=== PATIENT | male | born 1950 | race American Indian/Alaskan Native ===

== ENCOUNTER 2022-03-25 07:13 | Emergency (ER) | payer MEDICARE, OTHER ==
[2022-03-25] MEDS ORDERED: GI Cocktail Oral Solution 30 ML PO ONE (09:15)
[2022-03-25] MEDS ORDERED: Pantoprazole 40 MG in Sodium Chloride 0.9% 10 ML IV ONE (09:15)
[2022-04-19 14:02] LABS: ANION GAP 9.2 mEq/L (7-13); CHLORIDE,CL 101 mmol/L (98-107); ESTIMATED GFR 43 mL/min (>=60); SODIUM,NA 137 mmol/L (136-145)
[2022-04-19 14:04] LABS: PTT,PARTIAL THROMBOPLSTIN TIME 23.9 SEC (22.0-34.0)
== END 2022-03-25 10:20 | disposition home or self-care (01) ==
LOC: DL.ED 07:13
DX: R10.13 Epigastric pain (principal); E11.51 Type 2 diabetes mellitus with diabetic peripheral angiopathy without gangrene
CPT/HCPCS: 36415; 71045; 80053; 81001; 82150; 83605; 83690; 83735; 83880; 84484; 85025; 85610; 85730; 96374; 99284-25

== ENCOUNTER 2022-03-27 09:10 | Emergency (ER) | payer MEDICARE, OTHER ==
[2022-04-20 11:03] LABS: ANION GAP 9.7 mEq/L (7-13); CHLORIDE,CL 95 mmol/L (98-107); ESTIMATED GFR 25 mL/min (>=60); SODIUM,NA 128 mmol/L (136-145)
[2022-04-20 11:07] LABS: CORONAVIRUS COVID-19 NAA NEGATIVE (NEGATIVE); RESPIRATORY SYNCYTIAL VIR NAA NEGATIVE (NEGATIVE)
== END 2022-03-28 00:05 | disposition home or self-care (01) ==
LOC: DL.ED 09:10
DX: E86.0 Dehydration (principal); I95.1 Orthostatic hypotension; I12.9 Hypertensive chronic kidney disease with stage 1 through stage 4 chronic kidney disease, or unspecified chronic kidney disease; N18.9 Chronic kidney disease, unspecified
CPT/HCPCS: 0241U; 36415; 80053; 81003; 84484; 85025; 85610; 96360; 99284; 93005

== ENCOUNTER 2022-03-28 17:45 | Inpatient (IN) | payer MEDICARE, OTHER ==
[2022-03-29] MEDS ORDERED: Mirtazapine 15 MG Tab PO ONE (01:45)
[2022-03-29] MEDS ORDERED: Acetaminophen 500 MG Tab PO ONE (01:45)
[2022-03-29] MEDS ORDERED: Insulin Lispro 100 Units/ML 3 ML Vial SUBCUT ONE (02:00)
[2022-03-29] MEDS ORDERED: Heparin Sodium 5,000 Units/ML Vial IV ONE (02:00)
[2022-03-29] MEDS ORDERED: Sodium Chloride 0.9% 250 ML IV ONE (06:00)
[2022-03-29] MEDS ORDERED: Pantoprazole 40 MG Tab.CR PO ONE (06:00)
[2022-03-29] MEDS ORDERED: cefTRIAXone 2 GM Vial IV ONE (08:10)
[2022-03-29] MEDS ORDERED: metroNIDAZOLE/Normal Saline 100 ML IV ONE (09:30)
[2022-04-22 10:33] LABS: CHLORIDE,CL 95 mmol/L (98-107); SODIUM,NA 127 mmol/L (136-145)
[2022-04-22 10:34] LABS: ANION GAP 10.1 mEq/L (7-13); ESTIMATED GFR 23 mL/min (>=60)
[2022-04-22 14:53] LABS: ANION GAP 13.6 mEq/L (7-13); CHLORIDE,CL 97 mmol/L (98-107); ESTIMATED GFR 22 mL/min (>=60); SODIUM,NA 130 mmol/L (136-145)
== END 2022-03-29 12:20 | DRG 682 ==
LOC: DL.ED 17:45 → DL.ZCENSUS 22:25
PROVIDERS: ADMIT Internal Medicine; ATTEND Internal Medicine
DX: N17.9 Acute kidney failure, unspecified (principal); K75.0 Abscess of liver; R41.82 Altered mental status, unspecified; R78.81 Bacteremia; E87.1 Hypo-osmolality and hyponatremia; I95.1 Orthostatic hypotension; B96.89 Other specified bacterial agents as the cause of diseases classified elsewhere; N18.9 Chronic kidney disease, unspecified; E11.22 Type 2 diabetes mellitus with diabetic chronic kidney disease; K80.20 Calculus of gallbladder without cholecystitis without obstruction; H54.40 Blindness, one eye, unspecified eye; I12.9 Hypertensive chronic kidney disease with stage 1 through stage 4 chronic kidney disease, or unspecified chronic kidney disease; I25.10 Atherosclerotic heart disease of native coronary artery without angina pectoris; E86.0 Dehydration; Z95.0 Presence of cardiac pacemaker; Z79.84 Long term (current) use of oral hypoglycemic drugs; Z79.899 Other long term (current) drug therapy; I95.9 Hypotension, unspecified; I10 Essential (primary) hypertension; E11.40 Type 2 diabetes mellitus with diabetic neuropathy, unspecified; Z95.1 Presence of aortocoronary bypass graft
CPT/HCPCS: 36415; 70450; 74177; 76705; 80053; 82140; 82947; 83605; 83735; 84145; 84484; 85025; 85610; 86140; 87040; 87077; 87186; 99285; A9270-GY; J0696; J1644; J1815-GY; J3490; J7050

== ENCOUNTER 2022-05-05 09:22 | Emergency (ER) | payer MEDICARE, OTHER ==
[2022-05-05 09:53] VITALS: BP 142/91; PULSE 106
[2022-05-05 10:59] LABS: ANION GAP 12.2 mEq/L (7-13)
[2022-05-05] MEDS ORDERED: Aspirin 81 MG Tab.Chew PO ONE (11:05)
[2022-05-05] MEDS ORDERED: Heparin Sodium 5,000 Units/ML Vial IVPUSH ONE (11:07)
[2022-05-05] MEDS ORDERED: Heparin Sodium/0.45% NaCl 25,000 UNITS/500 ML BAG IV ONE (11:08)
== END 2022-05-05 12:43 ==
LOC: DL.ED 09:22
DX: I21.4 Non-ST elevation (NSTEMI) myocardial infarction (principal); R77.8 Other specified abnormalities of plasma proteins; I25.10 Atherosclerotic heart disease of native coronary artery without angina pectoris; E78.00 Pure hypercholesterolemia, unspecified; I10 Essential (primary) hypertension; E10.9 Type 1 diabetes mellitus without complications; Z95.0 Presence of cardiac pacemaker; Z79.82 Long term (current) use of aspirin; Z79.899 Other long term (current) drug therapy
CPT/HCPCS: 71045; 80053; 83605; 84484; 85025; 85610; 93005; 96365; 99285; A9270; J1644

== ENCOUNTER 2022-10-07 12:00 | Emergency (ER) | payer MEDICARE, OTHER ==
[2022-10-07 12:39] VITALS: BP 156/77; PULSE 73
[2022-10-07] MEDS ORDERED: Sodium Chloride 0.9% 10 ML Syringe FLUSH PRN (12:46)
[2022-10-07] MEDS ORDERED: Acetaminophen 500 MG Tab PO ONE (13:01)
[2022-10-07] MEDS ORDERED: Sodium Chloride 0.9% 1,000 ML IV ONE (13:27)
[2022-10-07 13:32] LABS: ANION GAP 11.9 mEq/L (7-13)
[2022-10-07] MEDS ORDERED: cefTRIAXone 2 GM Vial IVPUSH ONE (13:45)
[2022-10-07 13:50] LABS: CORONAVIRUS COVID-19 NAA NEGATIVE (NEGATIVE); RESPIRATORY SYNCYTIAL VIR NAA NEGATIVE (NEGATIVE)
== END 2022-10-07 14:17 | disposition home or self-care (01) ==
LOC: DL.ED 12:00
DX: J18.9 Pneumonia, unspecified organism (principal); E11.9 Type 2 diabetes mellitus without complications; I10 Essential (primary) hypertension; E78.5 Hyperlipidemia, unspecified; I25.10 Atherosclerotic heart disease of native coronary artery without angina pectoris; E78.00 Pure hypercholesterolemia, unspecified; Z95.0 Presence of cardiac pacemaker; Z79.899 Other long term (current) drug therapy; Z79.82 Long term (current) use of aspirin; Z20.822 Contact with and (suspected) exposure to COVID-19
CPT/HCPCS: 0241U; 36415; 71045; 80053; 81001; 82947; 83605; 85025; 86140; 87040; 87077; 96361; 96374; 99284; A9270; J0696; J7030

== ENCOUNTER 2022-10-08 18:39 | Inpatient (IN) | payer MEDICARE, OTHER ==
[2022-10-08] MEDS ORDERED: Acetaminophen/HYDROcodone 325-5 MG Tab PO PRN (20:07)
[2022-10-08] MEDS ORDERED: Polyethylene Glycol 3350 Powder 17 GM Packet PO PRN (20:07)
[2022-10-08] MEDS ORDERED: Magnesium Hydroxide 400 MG/5 ML Susp 30 ML Cup PO PRN (20:07)
[2022-10-08] MEDS ORDERED: HYDROmorphone 0.5 MG/0.5 ML Syringe IVPUSH PRN (20:07)
[2022-10-08] MEDS ORDERED: Acetaminophen 325 MG Tab PO PRN (20:07)
[2022-10-08] MEDS ORDERED: Ondansetron 4 MG/2 ML SDV IVPUSH PRN (20:07)
[2022-10-08] MEDS ORDERED: Albuterol/Ipratropium 3.0-0.5 MG/3 ML Neb Soln NEB PRN (20:07)
[2022-10-08] MEDS ORDERED: Bisacodyl 5 MG Tab PO PRN (20:07)
[2022-10-08] MEDS ORDERED: 50% Dextrose in Water 50 ML Syringe IVPUSH PRN (20:10)
[2022-10-08] MEDS ORDERED: Glucagon,Human Recombinant 1 MG Vial IM PRN (20:10)
[2022-10-08 20:52] LABS: ANION GAP 12.9 mEq/L (7-13)
[2022-10-08] MEDS ORDERED: Melatonin 3 MG Tab PO PRN (20:52)
[2022-10-08] MEDS ORDERED: guaiFENesin 600 MG Tab.ER PO ONE (21:06)
[2022-10-08] MEDS ORDERED: Metoprolol Tartrate 5 MG/5 ML SDV IVPUSH PRN (21:35)
[2022-10-08] MEDS ORDERED: Sodium Chloride 0.9% 10 ML Syringe FLUSH PRN (21:40)
[2022-10-08] MEDS ORDERED: Sodium Chloride 0.9% 1,000 ML IV SCH (21:45)
[2022-10-08] MEDS ORDERED: Apixaban 5 MG Tab PO ONE (21:45)
[2022-10-08] MEDS: VANCOmycin 1.75 GM/350 ML 1.75 GM in Premix Bag 1 BAG IV ONE ×2 (21:57→22:03)
[2022-10-08] MEDS: Gabapentin 400 MG Cap PO SCH (22:05)
[2022-10-08] MEDS: Piperacillin/Tazobactam 2.25 GM in Sodium Chloride 0.9% 50 ML IV SCH (23:49)
[2022-10-09] MEDS ORDERED: Piperacillin/Tazobactam 3.375 GM in Sodium Chloride 0.9% 100 ML IV SCH ×2
[2022-10-09] MEDS: Piperacillin/Tazobactam 2.25 GM in Sodium Chloride 0.9% 50 ML IV SCH ×4 (05:42→23:02)
[2022-10-09 07:46] LABS: ANION GAP 10.8 mEq/L (7-13)
[2022-10-09] MEDS: Apixaban 5 MG Tab PO SCH ×2 (08:10→21:28)
[2022-10-09] MEDS: guaiFENesin 600 MG Tab.ER PO SCH ×2 (08:10→21:29)
[2022-10-09] MEDS: Sodium Chloride 0.9% 10 ML Syringe FLUSH SCH ×2 (08:11→21:29)
[2022-10-09] MEDS: Saccharomyces Boulardii (Probiotic) 250 MG Cap PO SCH ×2 (08:11→21:28)
[2022-10-09] MEDS: Insulin Lispro 100 Units/ML 3 ML Vial SUBCUT SCH ×3 (08:11→17:03)
[2022-10-09] MEDS: Gabapentin 400 MG Cap PO SCH (21:29)
[2022-10-09] MEDS: hydrALAZINE 20 MG/ML SDV IVPUSH PRN (23:09)
[2022-10-09] MEDS: Calcium Carbonate 500 MG Tab.Chew PO PRN (23:27)
[2022-10-10] MEDS: Piperacillin/Tazobactam 2.25 GM in Sodium Chloride 0.9% 50 ML IV SCH ×3 (05:23→17:33)
[2022-10-10 05:56] LABS: ANION GAP 13.6 mEq/L (7-13)
[2022-10-10] MEDS: hydrALAZINE 20 MG/ML SDV IVPUSH PRN ×2 (07:42→16:35)
[2022-10-10] MEDS: Saccharomyces Boulardii (Probiotic) 250 MG Cap PO SCH ×2 (08:11→20:15)
[2022-10-10] MEDS: Apixaban 5 MG Tab PO SCH ×2 (08:11→20:17)
[2022-10-10] MEDS: Insulin Lispro 100 Units/ML 3 ML Vial SUBCUT SCH ×3 (08:12→16:31)
[2022-10-10] MEDS: guaiFENesin 600 MG Tab.ER PO SCH ×2 (08:12→20:16)
[2022-10-10] MEDS: Sodium Chloride 0.9% 10 ML Syringe FLUSH SCH ×2 (08:18→20:19)
[2022-10-10] MEDS ORDERED: cloNIDine 0.1 MG Tab PO ONE (17:57)
[2022-10-10] MEDS: Furosemide 20 MG Tab PO SCH (18:14)
[2022-10-10] MEDS: hydrALAZINE 25 MG Tab PO SCH ×2 (18:17→20:22)
[2022-10-10] MEDS: Dorzolamide 2% Ophth Soln 10 ML Bottle EYEBOTH SCH (20:14)
[2022-10-10] MEDS: Carvedilol 25 MG Tab PO SCH (20:18)
[2022-10-10] MEDS: Calcium Carbonate 500 MG Tab.Chew PO PRN (20:42)
[2022-10-10] MEDS ORDERED: Isosorbide Mononitrate 60 MG Tab.ER PO SCH (21:00)
[2022-10-10] MEDS ORDERED: Gabapentin 300 MG Cap PO SCH (21:00)
[2022-10-11] MEDS: Piperacillin/Tazobactam 2.25 GM in Sodium Chloride 0.9% 50 ML IV SCH ×3 (00:30→13:10)
[2022-10-11 06:02] LABS: ANION GAP 14.1 mEq/L (7-13)
[2022-10-11] MEDS: Carvedilol 25 MG Tab PO SCH (08:19)
[2022-10-11] MEDS: Saccharomyces Boulardii (Probiotic) 250 MG Cap PO SCH (08:19)
[2022-10-11] MEDS: Apixaban 5 MG Tab PO SCH (08:20)
[2022-10-11] MEDS: hydrALAZINE 25 MG Tab PO SCH (08:20)
[2022-10-11 08:21] VITALS: BP 159/77; PULSE 76
[2022-10-11] MEDS: guaiFENesin 600 MG Tab.ER PO SCH (08:21)
[2022-10-11] MEDS: Furosemide 20 MG Tab PO SCH (08:21)
[2022-10-11] MEDS: Insulin Lispro 100 Units/ML 3 ML Vial SUBCUT SCH (08:23)
[2022-10-11] MEDS: Sodium Chloride 0.9% 10 ML Syringe FLUSH SCH (08:24)
[2022-10-11] MEDS: Dorzolamide 2% Ophth Soln 10 ML Bottle EYEBOTH SCH (08:25)
[2022-10-11] MEDS ORDERED: Clopidogrel 75 MG Tab PO SCH (09:00)
[2022-10-11] MEDS ORDERED: Magnesium Oxide 400 MG Tab PO SCH (09:00)
[2022-10-11] MEDS ORDERED: DULoxetine 30 MG Cap PO SCH (09:00)
[2022-10-11] MEDS ORDERED: Cyanocobalamin (Vitamin B12) 100 MCG Tab PO SCH (09:00)
[2022-10-11] MEDS ORDERED: Ferrous Sulfate 325 MG Tab PO SCH (09:00)
[2022-10-11] MEDS ORDERED: Potassium Chloride 10 MEQ Tab.ER PO SCH (09:00)
[2022-10-11] MEDS ORDERED: Multivitamin Tab PO SCH (09:00)
[2022-10-11] MEDS ORDERED: atorvaSTATin 20 MG Tab PO SCH (09:00)
[2022-10-11] MEDS ORDERED: FENOFIBRIC ACID 45 MG PO SCH (09:00)
== END 2022-10-11 10:00 | disposition home or self-care (01) | DRG 194 ==
LOC: DL.MS 18:39 → UNDOADMIN 18:39 → DL.MS 20:07
PROVIDERS: ADMIT Internal Medicine; ATTEND Internal Medicine
DX: J18.9 Pneumonia, unspecified organism (principal); R78.81 Bacteremia; D63.8 Anemia in other chronic diseases classified elsewhere; E11.65 Type 2 diabetes mellitus with hyperglycemia; F32.A Depression, unspecified; E66.9 Obesity, unspecified; Z68.27 Body mass index [BMI] 27.0-27.9, adult; I49.5 Sick sinus syndrome; N18.30 Chronic kidney disease, stage 3 unspecified; E11.22 Type 2 diabetes mellitus with diabetic chronic kidney disease; M19.90 Unspecified osteoarthritis, unspecified site; I48.0 Paroxysmal atrial fibrillation; E11.42 Type 2 diabetes mellitus with diabetic polyneuropathy; H40.9 Unspecified glaucoma; G89.29 Other chronic pain; M54.9 Dorsalgia, unspecified; D63.1 Anemia in chronic kidney disease; I12.9 Hypertensive chronic kidney disease with stage 1 through stage 4 chronic kidney disease, or unspecified chronic kidney disease; E78.5 Hyperlipidemia, unspecified; I25.10 Atherosclerotic heart disease of native coronary artery without angina pectoris; Z95.1 Presence of aortocoronary bypass graft; Z95.0 Presence of cardiac pacemaker; Z79.82 Long term (current) use of aspirin; Z79.899 Other long term (current) drug therapy; Z79.01 Long term (current) use of anticoagulants; Z98.49 Cataract extraction status, unspecified eye
CPT/HCPCS: 36415; 80053; 80202; 82947; 83605; 83735; 85025; 86140; 87040; 94010; 99222; 99232; 99238; A9270-GY; J0360; J1815-GY; J2543; J3370; J3490; J7030; J7040

== ENCOUNTER 2023-01-24 02:17 | Emergency (ER) | payer MEDICARE, OTHER ==
[2023-01-24 02:45] VITALS: BP 166/96; PULSE 70
[2023-01-24 02:55] LABS: BASOPHILS PERCENT AUTO 0.1 % (0.0-1.0); HEMATOCRIT 33.6 % (40.0-54.0); LYMPHOCYTES PERCENT AUTO 3.2 % (20.5-50.1); MEAN CORPUSCULAR HEMOGLOBIN 29.7 pg (27.0-34.0); MEAN CORPUSCULAR HGB CONC 32.7 g/dL (33.0-35.0); MEAN CORPUSCULAR VOLUME 90.8 fL (80-100); MONOCYTES PERCENT AUTO 4.3 % (2-8); NEUTROPHILS PERCENT AUTO 92.4 % (42.2-75.2); PLATELET COUNT,PLT 193 10^3/uL (150-450); WHITE BLOOD CELL COUNT,WBC 19.2 10^3/uL (5.0-10.0)
[2023-01-24 03:03] LABS: INR 1.3 (0.9-1.2); PROTHROMBIN TIME 13.1 SEC (9.0-12.0); PTT,PARTIAL THROMBOPLSTIN TIME 31.3 SEC (22.0-34.0)
[2023-01-24 03:08] LABS: O2 DELIVERY DEVICE ROOM AIR
[2023-01-24 03:09] LABS: BASE EXCESS ARTERIAL 1 mmol/L ((-2)-(+3)); BICARBONATE,ARTERIAL 24.5 mmol/L (22-26); O2 SATURATION ARTERIAL 89 % (95-100); PCO2 ARTERIAL 38 mmHg (35-45); PH,ARTERIAL 7.43 (7.35-7.45); PO2 ARTERIAL 60 mmHg (70-100)
[2023-01-24 03:10] LABS: ALLEN TEST positive
[2023-01-24 03:14] LABS: ALANINE AMINOTRANSFERASE,ALT 19 U/L (16-63); ALBUMIN 3.3 g/dL (3.4-5.0); ALKALINE PHOSPHATASE 80 U/L (46-116); ANION GAP 12.6 mEq/L (7-13); ASPARTATE AMNIOTRANSFERASE,AST 32 U/L (15-37); BILIRUBIN TOTAL 1.1 mg/dL (0.2-1.0); BLOOD UREA NITROGEN,BUN 44 mg/dL (7-18); BUN/CREATININE RATIO 14.6 (No establ ref range); CALCIUM 9.1 mg/dL (8.5-10.1); CARBON DIOXIDE,CO2 28 mmol/L (21-32); CHLORIDE,CL 95 mmol/L (98-107); CREATININE 3.01 mg/dL (0.70-1.30); EST CRCL DRUG DOSING (CG) 25.41 mL/min; GLUCOSE RANDOM 179 mg/dL (70-99); MAGNESIUM 2.1 mg/dL (1.8-2.4); POTASSIUM,K 4.6 mmol/L (3.5-5.1); PROTEIN TOTAL,TP 7.9 g/dL (6.4-8.2); SODIUM,NA 131 mmol/L (136-145); TSH ULTRASENSITIVE 1.27 uIU/mL (0.36-3.74)
[2023-01-24 03:15] LABS: A/G RATIO 0.72; C-REACTIVE PROTEIN 13.8 mg/dL (0.0-0.9); ESTIMATED GFR 21 mL/min (>=60); ETHANOL BLOOD MEDICAL < 3 mg/dL (0)
[2023-01-24 03:16] LABS: LACTIC ACID 2.2 mmol/L (0.4-2.0)
[2023-01-24 03:18] LABS: B-TYPE NATRIURETIC PEPTIDE,BNP 1410 pg/ml (0-100)
[2023-01-24] MEDS ORDERED: Sodium Chloride 0.9% 1,000 ML IV ONE (03:41)
[2023-01-24] MEDS ORDERED: Acetaminophen 500 MG Tab PO ONE (04:15)
[2023-01-24 04:24] LABS: APPEARANCE,URINE SLIGHTLY CLOUDY (CLEAR); BILIRUBIN,URINE NEGATIVE (NEGATIVE); COLOR,URINE YELLOW (YELLOW); GLUCOSE,URINE NEGATIVE (NEGATIVE); KETONES,URINE NEGATIVE (NEGATIVE); LEUKOCYTE ESTERASE,URINE NEGATIVE (NEGATIVE); NITRITE,URINE POSITIVE (NEGATIVE); OCCULT BLOOD,URINE TRACE-INTACT (NEGATIVE); PROTEIN,URINE >=300 (NEGATIVE); UROBILINOGEN,URINE 0.2 mg/dL (0.2-1.0)
[2023-01-24 04:27] LABS: AMPHETAMINES,URINE NEGATIVE (NEGATIVE); BARBITURATES,URINE NEGATIVE (NEGATIVE); BENZODIAZEPINE,URINE NEGATIVE (NEGATIVE); MDMA (ECSTASY), URINE NEGATIVE (NEGATIVE); METHADONE,URINE NEGATIVE (NEGATIVE); METHAMPHETAMINES,URINE NEGATIVE (NEGATIVE); OPIATES,URINE NEGATIVE (NEGATIVE); OXYCODONE,URINE NEGATIVE (NEGATIVE); PHENCYCLIDINE,URINE NEGATIVE (NEGATIVE); TCA,URINE NEGATIVE (NEGATIVE)
[2023-01-24 04:34] LABS: RBC,URINE 0-5 /HPF (0-5)
[2023-01-24 04:35] LABS: BACTERIA,URINE MANY /HPF (0-FEW/HPF); EPITHELIAL CELLS,URINE FEW /HPF (NOT SEEN)
[2023-01-24] MEDS ORDERED: cefTRIAXone 2 GM Vial IVPUSH ONE (04:38)
[2023-01-24] MEDS ORDERED: Nafcillin 2 GM Vial IVPUSH ONE (05:08)
== END 2023-01-24 06:38 ==
LOC: DL.ED 02:17
DX: A41.9 Sepsis, unspecified organism (principal); L03.116 Cellulitis of left lower limb; L03.115 Cellulitis of right lower limb; R41.0 Disorientation, unspecified; N30.00 Acute cystitis without hematuria; I13.0 Hypertensive heart and chronic kidney disease with heart failure and stage 1 through stage 4 chronic kidney disease, or unspecified chronic kidney disease; E13.22 Other specified diabetes mellitus with diabetic chronic kidney disease; N18.9 Chronic kidney disease, unspecified; I50.9 Heart failure, unspecified; N17.9 Acute kidney failure, unspecified; E78.00 Pure hypercholesterolemia, unspecified; I25.10 Atherosclerotic heart disease of native coronary artery without angina pectoris; M19.90 Unspecified osteoarthritis, unspecified site; Z79.899 Other long term (current) drug therapy; Z79.82 Long term (current) use of aspirin; Z79.01 Long term (current) use of anticoagulants; Z79.84 Long term (current) use of oral hypoglycemic drugs; Z95.0 Presence of cardiac pacemaker; W18.30XA Fall on same level, unspecified, initial encounter
CPT/HCPCS: 36415; 36600; 70450; 71045; 80053; 80305; 80307; 81001; 82140; 82803; 83605; 83735; 83880; 84443; 84484; 85025; 85610; 85730; 86140; 87040; 87077; 87086; 87088; 87186; 93005; 93010; 96361; 96374; 96375; 99285; A9270; C1758; J0696; J7030; J3490

== ENCOUNTER 2023-03-08 20:15 | Inpatient (IN) | payer MEDICARE, OTHER ==
[2023-03-08] MEDS ORDERED: Acetaminophen 325 MG Tab PO ONE (20:45)
[2023-03-08] MEDS ORDERED: Lactated Ringers 1,000 ML IV SCH (20:45)
[2023-03-08] MEDS: Sodium Chloride 0.9% 10 ML Syringe FLUSH PRN (20:57)
[2023-03-08 20:58] LABS: BASOPHILS PERCENT AUTO 0.1 % (0.0-1.0); HEMATOCRIT 30.4 % (40.0-54.0); HEMOGLOBIN 9.6 g/dL (14.0-18.0); LYMPHOCYTES PERCENT AUTO 2.7 % (20.5-50.1); MEAN CORPUSCULAR HEMOGLOBIN 29.4 pg (27.0-34.0); MEAN CORPUSCULAR HGB CONC 31.6 g/dL (33.0-35.0); MEAN CORPUSCULAR VOLUME 93.3 fL (80-100); MONOCYTES PERCENT AUTO 3.8 % (2-8); NEUTROPHILS PERCENT AUTO 93.4 % (42.2-75.2); PLATELET COUNT,PLT 229 10^3/uL (150-450); RED BLOOD CELL COUNT 3.26 10^6/uL (4.6-6.2); WHITE BLOOD CELL COUNT,WBC 19.8 10^3/uL (5.0-10.0)
[2023-03-08 21:07] LABS: ALBUMIN 2.9 g/dL (3.4-5.0); BILIRUBIN TOTAL 0.8 mg/dL (0.2-1.0); CALCIUM 8.9 mg/dL (8.5-10.1); CREATININE 3.13 mg/dL (0.70-1.30); EST CRCL DRUG DOSING (CG) 23.07 mL/min; MAGNESIUM 2.1 mg/dL (1.8-2.4); PROTEIN TOTAL,TP 7.3 g/dL (6.4-8.2)
[2023-03-08] MEDS ORDERED: cefTRIAXone 1 GM Vial IVPUSH ONE (21:09)
[2023-03-08] MEDS ORDERED: Vancomycin 2 GM in Sodium Chloride 0.9% 500 ML IV ONE (21:15)
[2023-03-08 21:16] LABS: A/G RATIO 0.66
[2023-03-08 21:17] LABS: LACTIC ACID 2.6 mmol/L (0.4-2.0)
[2023-03-08 21:20] LABS: APPEARANCE,URINE CLEAR (CLEAR); BILIRUBIN,URINE NEGATIVE (NEGATIVE); COLOR,URINE YELLOW (YELLOW); GLUCOSE,URINE NEGATIVE (NEGATIVE); KETONES,URINE NEGATIVE (NEGATIVE); LEUKOCYTE ESTERASE,URINE TRACE (NEGATIVE); NITRITE,URINE NEGATIVE (NEGATIVE); OCCULT BLOOD,URINE NEGATIVE (NEGATIVE); PH,URINE 5.5 (5.0-9.0); PROTEIN,URINE 100 (NEGATIVE); UROBILINOGEN,URINE 0.2 mg/dL (0.2-1.0)
[2023-03-08 21:29] LABS: BACTERIA,URINE FEW /HPF (0-FEW/HPF); EPITHELIAL CELLS,URINE MODERATE /HPF (NOT SEEN); HYALINE CASTS,URINE FEW; MUCUS,URINE FEW /LPF (NOT SEEN); RBC,URINE 0-5 /HPF (0-5)
[2023-03-08] MEDS ORDERED: Lactated Ringers 1,000 ML IV ONE (23:11)
[2023-03-08] MEDS ORDERED: hydrALAZINE 20 MG/ML SDV IVPUSH PRN (23:13)
[2023-03-08] MEDS ORDERED: Metoprolol Tartrate 5 MG/5 ML SDV IVPUSH PRN (23:13)
[2023-03-08] MEDS ORDERED: 50% Dextrose in Water 50 ML Syringe IVPUSH PRN (23:15)
[2023-03-08] MEDS ORDERED: Glucagon,Human Recombinant 1 MG Vial IM PRN (23:15)
[2023-03-08] MEDS ORDERED: Ondansetron 4 MG/2 ML SDV IVPUSH PRN (23:16)
[2023-03-08] MEDS ORDERED: Polyethylene Glycol 3350 Powder 17 GM Packet PO PRN (23:16)
[2023-03-08] MEDS ORDERED: Acetaminophen 325 MG Tab PO PRN (23:16)
[2023-03-08] MEDS ORDERED: HYDROmorphone 0.5 MG/0.5 ML Syringe IVPUSH PRN (23:16)
[2023-03-08] MEDS ORDERED: Magnesium Hydroxide 400 MG/5 ML Susp 30 ML Cup PO PRN (23:16)
[2023-03-08] MEDS ORDERED: Acetaminophen/HYDROcodone 325-5 MG Tab PO PRN (23:16)
[2023-03-08] MEDS ORDERED: Sennosides/Docusate Sodium 50-8.6 MG Tab PO PRN (23:16)
[2023-03-08] MEDS ORDERED: Naloxone 2 MG/2 ML Syringe IVPUSH PRN (23:16)
[2023-03-08] MEDS ORDERED: guaiFENesin/Dextromethorphan 100-10 MG/5 ML Soln 5 ML Cup PO PRN (23:29)
[2023-03-08 23:59] LABS: C-REACTIVE PROTEIN 10.24 ng/dL (<=0.30)
[2023-03-09] MEDS: Piperacillin/Tazobactam 3.375 GM in Sodium Chloride 0.9% 100 ML IV SCH ×6 (05:07→23:39)
[2023-03-09 06:30] LABS: BASOPHILS PERCENT AUTO 0.1 % (0.0-1.0); HEMATOCRIT 27.1 % (40.0-54.0); HEMOGLOBIN 8.7 g/dL (14.0-18.0); LYMPHOCYTES PERCENT AUTO 2.8 % (20.5-50.1); MEAN CORPUSCULAR HEMOGLOBIN 29.9 pg (27.0-34.0); MEAN CORPUSCULAR HGB CONC 32.1 g/dL (33.0-35.0); MEAN CORPUSCULAR VOLUME 93.1 fL (80-100); MONOCYTES PERCENT AUTO 4.6 % (2-8); NEUTROPHILS PERCENT AUTO 92.5 % (42.2-75.2); PLATELET COUNT,PLT 186 10^3/uL (150-450); RED BLOOD CELL COUNT 2.91 10^6/uL (4.6-6.2); WHITE BLOOD CELL COUNT,WBC 18.2 10^3/uL (5.0-10.0)
[2023-03-09 07:07] LABS: A/G RATIO 0.62; ALBUMIN 2.3 g/dL (3.4-5.0); ANION GAP 12.9 mEq/L (7-13); BILIRUBIN TOTAL 0.7 mg/dL (0.2-1.0); BUN/CREATININE RATIO 16.1 (No establ ref range); C-REACTIVE PROTEIN 11.83 ng/dL (<=0.30); CALCIUM 8.4 mg/dL (8.5-10.1); CREATININE 3.05 mg/dL (0.70-1.30); EST CRCL DRUG DOSING (CG) 25.08 mL/min; POTASSIUM,K 4.9 mmol/L (3.5-5.1)
[2023-03-09] MEDS: Saccharomyces Boulardii (Probiotic) 250 MG Cap PO SCH ×2 (09:14→20:44)
[2023-03-09] MEDS: Insulin Lispro 100 Units/ML 3 ML Vial SUBCUT SCH ×3 (09:14→17:17)
[2023-03-09] MEDS: Apixaban 5 MG Tab PO SCH (20:44)
[2023-03-09] MEDS: Sodium Chloride 0.9% 1,000 ML IV SCH ×2 (21:45)
[2023-03-10] MEDS: Piperacillin/Tazobactam 3.375 GM in Sodium Chloride 0.9% 100 ML IV SCH ×4 (05:29→23:16)
[2023-03-10 06:33] LABS: BASOPHILS PERCENT AUTO 0.1 % (0.0-1.0); HEMOGLOBIN 9.6 g/dL (14.0-18.0); LYMPHOCYTES PERCENT AUTO 3.3 % (20.5-50.1); MEAN CORPUSCULAR HEMOGLOBIN 29.7 pg (27.0-34.0); MEAN CORPUSCULAR VOLUME 92.9 fL (80-100); NEUTROPHILS PERCENT AUTO 90.6 % (42.2-75.2); PLATELET COUNT,PLT 200 10^3/uL (150-450); RED BLOOD CELL COUNT 3.23 10^6/uL (4.6-6.2); WHITE BLOOD CELL COUNT,WBC 15.1 10^3/uL (5.0-10.0)
[2023-03-10 06:48] LABS: ALBUMIN 2.3 g/dL (3.4-5.0); ANION GAP 13.5 mEq/L (7-13); BILIRUBIN TOTAL 0.6 mg/dL (0.2-1.0); BUN/CREATININE RATIO 19.4 (No establ ref range); C-REACTIVE PROTEIN 15.58 ng/dL (<=0.30); CALCIUM 8.8 mg/dL (8.5-10.1); CREATININE 3.15 mg/dL (0.70-1.30); EST CRCL DRUG DOSING (CG) 24.28 mL/min; MAGNESIUM 2.2 mg/dL (1.8-2.4); POTASSIUM,K 4.5 mmol/L (3.5-5.1); PROTEIN TOTAL,TP 6.4 g/dL (6.4-8.2)
[2023-03-10 06:49] LABS: A/G RATIO 0.56
[2023-03-10] MEDS: Insulin Lispro 100 Units/ML 3 ML Vial SUBCUT SCH ×3 (08:35→17:20)
[2023-03-10] MEDS: Apixaban 5 MG Tab PO SCH ×2 (09:11→21:39)
[2023-03-10] MEDS: Saccharomyces Boulardii (Probiotic) 250 MG Cap PO SCH ×2 (09:11→21:39)
[2023-03-10] MEDS: Albuterol/Ipratropium 3.0-0.5 MG/3 ML Neb Soln NEB PRN ×3 (09:29→21:52)
[2023-03-10] MEDS ORDERED: Furosemide 20 MG Tab PO ONE (10:06)
[2023-03-10] MEDS ORDERED: Carboxymethylcellulose Sodium 1% Ophth Gel 0.4 ML UD EYEBOTH PRN (12:53)
[2023-03-10] MEDS ORDERED: Nitroglycerin 0.4 MG Tab.SL SL PRN (12:55)
[2023-03-10] MEDS: hydrALAZINE 25 MG Tab PO SCH ×3 (14:54→21:42)
[2023-03-10] MEDS: Polyvinyl Alcohol 1.4% Ophth Soln 15 ML Bottle EYEBOTH SCH ×3 (15:38→21:43)
[2023-03-10] MEDS: Albuterol/Ipratropium 3.0-0.5 MG/3 ML Neb Soln NEB SCH (17:02)
[2023-03-10] MEDS: Carvedilol 25 MG Tab PO SCH (17:49)
[2023-03-10] MEDS: Isosorbide Mononitrate 60 MG Tab.ER PO SCH (21:38)
[2023-03-10] MEDS: Gabapentin 300 MG Cap PO SCH (21:39)
[2023-03-10] MEDS: Dorzolamide 2% Ophth Soln 10 ML Bottle EYEBOTH SCH (21:46)
[2023-03-11] MEDS: Albuterol/Ipratropium 3.0-0.5 MG/3 ML Neb Soln NEB SCH ×4 (01:24→17:24)
[2023-03-11] MEDS: Piperacillin/Tazobactam 3.375 GM in Sodium Chloride 0.9% 100 ML IV SCH ×4 (05:39→23:29)
[2023-03-11 06:20] LABS: BASOPHILS PERCENT AUTO 0.1 % (0.0-1.0); EOSINOPHILS PERCENT AUTO 0.2 % (1.0-3.0); HEMATOCRIT 27.6 % (40.0-54.0); HEMOGLOBIN 8.8 g/dL (14.0-18.0); LYMPHOCYTES PERCENT AUTO 3.9 % (20.5-50.1); MEAN CORPUSCULAR HEMOGLOBIN 29.4 pg (27.0-34.0); MEAN CORPUSCULAR HGB CONC 31.9 g/dL (33.0-35.0); MEAN CORPUSCULAR VOLUME 92.3 fL (80-100); MONOCYTES PERCENT AUTO 7.9 % (2-8); NEUTROPHILS PERCENT AUTO 87.9 % (42.2-75.2); PLATELET COUNT,PLT 193 10^3/uL (150-450); RED BLOOD CELL COUNT 2.99 10^6/uL (4.6-6.2); WHITE BLOOD CELL COUNT,WBC 10.4 10^3/uL (5.0-10.0)
[2023-03-11 06:48] LABS: ALBUMIN 2.2 g/dL (3.4-5.0); ANION GAP 13.1 mEq/L (7-13); BILIRUBIN TOTAL 0.5 mg/dL (0.2-1.0); BUN/CREATININE RATIO 19.4 (No establ ref range); C-REACTIVE PROTEIN 11.89 ng/dL (<=0.30); CALCIUM 8.8 mg/dL (8.5-10.1); CREATININE 2.88 mg/dL (0.70-1.30); EST CRCL DRUG DOSING (CG) 26.56 mL/min; MAGNESIUM 2.2 mg/dL (1.8-2.4); POTASSIUM,K 4.1 mmol/L (3.5-5.1); PROTEIN TOTAL,TP 6.2 g/dL (6.4-8.2)
[2023-03-11 06:51] LABS: A/G RATIO 0.55
[2023-03-11] MEDS: Insulin Lispro 100 Units/ML 3 ML Vial SUBCUT SCH ×3 (08:01→17:32)
[2023-03-11] MEDS ORDERED: OMEGA ACID ETHYL ESTERS PO SCH (09:00)
[2023-03-11] MEDS ORDERED: FENOFIBRIC ACID 45 MG PO SCH (09:00)
[2023-03-11] MEDS: Magnesium Oxide 400 MG Tab PO SCH (10:26)
[2023-03-11] MEDS: Saccharomyces Boulardii (Probiotic) 250 MG Cap PO SCH ×2 (10:26→21:48)
[2023-03-11] MEDS: atorvaSTATin 20 MG Tab PO SCH (10:27)
[2023-03-11] MEDS: Potassium Chloride 10 MEQ Tab.ER PO SCH (10:28)
[2023-03-11] MEDS: Ferrous Sulfate 325 MG Tab PO SCH (10:29)
[2023-03-11] MEDS: Clopidogrel 75 MG Tab PO SCH (10:29)
[2023-03-11] MEDS: DULoxetine 30 MG Cap PO SCH (10:29)
[2023-03-11] MEDS: hydrALAZINE 25 MG Tab PO SCH ×4 (10:30→21:48)
[2023-03-11] MEDS: Apixaban 5 MG Tab PO SCH ×2 (10:31→21:48)
[2023-03-11] MEDS: Multivitamin Tab PO SCH (10:31)
[2023-03-11] MEDS: Cyanocobalamin (Vitamin B12) 100 MCG Tab PO SCH (10:32)
[2023-03-11] MEDS: Dorzolamide 2% Ophth Soln 10 ML Bottle EYEBOTH SCH ×2 (10:33→21:50)
[2023-03-11] MEDS: Carvedilol 25 MG Tab PO SCH ×2 (10:34→17:35)
[2023-03-11] MEDS: Polyvinyl Alcohol 1.4% Ophth Soln 15 ML Bottle EYEBOTH SCH ×4 (10:35→21:53)
[2023-03-11] MEDS ORDERED: Loperamide 2 MG Cap PO PRN (12:25)
[2023-03-11] MEDS: Furosemide 20 MG Tab PO SCH (14:19)
[2023-03-11] MEDS: Isosorbide Mononitrate 60 MG Tab.ER PO SCH (21:48)
[2023-03-11] MEDS: Gabapentin 300 MG Cap PO SCH (21:49)
[2023-03-12] MEDS: Albuterol/Ipratropium 3.0-0.5 MG/3 ML Neb Soln NEB SCH ×4 (01:04→17:17)
[2023-03-12] MEDS: Piperacillin/Tazobactam 3.375 GM in Sodium Chloride 0.9% 100 ML IV SCH ×4 (05:28→23:58)
[2023-03-12 06:27] LABS: BASOPHILS PERCENT AUTO 0.1 % (0.0-1.0); EOSINOPHILS PERCENT AUTO 0.7 % (1.0-3.0); HEMATOCRIT 27.9 % (40.0-54.0); HEMOGLOBIN 8.9 g/dL (14.0-18.0); LYMPHOCYTES PERCENT AUTO 5.6 % (20.5-50.1); MEAN CORPUSCULAR HEMOGLOBIN 29.3 pg (27.0-34.0); MEAN CORPUSCULAR HGB CONC 31.9 g/dL (33.0-35.0); MEAN CORPUSCULAR VOLUME 91.8 fL (80-100); MONOCYTES PERCENT AUTO 7.8 % (2-8); NEUTROPHILS PERCENT AUTO 85.8 % (42.2-75.2); PLATELET COUNT,PLT 203 10^3/uL (150-450); RED BLOOD CELL COUNT 3.04 10^6/uL (4.6-6.2); WHITE BLOOD CELL COUNT,WBC 7.5 10^3/uL (5.0-10.0)
[2023-03-12 06:56] LABS: ALBUMIN 2.2 g/dL (3.4-5.0); BILIRUBIN TOTAL 0.6 mg/dL (0.2-1.0); BUN/CREATININE RATIO 20.6 (No establ ref range); C-REACTIVE PROTEIN 9.48 ng/dL (<=0.30); CALCIUM 8.9 mg/dL (8.5-10.1); CREATININE 2.82 mg/dL (0.70-1.30); EST CRCL DRUG DOSING (CG) 27.12 mL/min; MAGNESIUM 2.4 mg/dL (1.8-2.4); PROTEIN TOTAL,TP 6.3 g/dL (6.4-8.2)
[2023-03-12 06:58] LABS: A/G RATIO 0.54
[2023-03-12] MEDS: Insulin Lispro 100 Units/ML 3 ML Vial SUBCUT SCH ×3 (09:02→17:26)
[2023-03-12] MEDS: Magnesium Oxide 400 MG Tab PO SCH (09:27)
[2023-03-12] MEDS: Furosemide 20 MG Tab PO SCH ×2 (09:27→15:50)
[2023-03-12] MEDS: Saccharomyces Boulardii (Probiotic) 250 MG Cap PO SCH ×2 (09:27→20:41)
[2023-03-12] MEDS: hydrALAZINE 25 MG Tab PO SCH ×4 (09:27→20:41)
[2023-03-12] MEDS: atorvaSTATin 20 MG Tab PO SCH (09:28)
[2023-03-12] MEDS: Carvedilol 25 MG Tab PO SCH ×2 (09:28→17:38)
[2023-03-12] MEDS: Ferrous Sulfate 325 MG Tab PO SCH (09:30)
[2023-03-12] MEDS: DULoxetine 30 MG Cap PO SCH (09:30)
[2023-03-12] MEDS: Multivitamin Tab PO SCH (09:30)
[2023-03-12] MEDS: Cyanocobalamin (Vitamin B12) 100 MCG Tab PO SCH (09:30)
[2023-03-12] MEDS: Apixaban 5 MG Tab PO SCH ×2 (09:30→20:41)
[2023-03-12] MEDS: Clopidogrel 75 MG Tab PO SCH (09:32)
[2023-03-12] MEDS: Polyvinyl Alcohol 1.4% Ophth Soln 15 ML Bottle EYEBOTH SCH ×4 (09:33→20:40)
[2023-03-12] MEDS: Dorzolamide 2% Ophth Soln 10 ML Bottle EYEBOTH SCH ×2 (09:33→20:40)
[2023-03-12] MEDS: Potassium Chloride 10 MEQ Tab.ER PO SCH (15:49)
[2023-03-12] MEDS: Isosorbide Mononitrate 60 MG Tab.ER PO SCH (20:40)
[2023-03-12] MEDS: Gabapentin 300 MG Cap PO SCH (20:41)
[2023-03-13] MEDS: Piperacillin/Tazobactam 3.375 GM in Sodium Chloride 0.9% 100 ML IV SCH ×2 (05:27→12:29)
[2023-03-13] MEDS: Albuterol/Ipratropium 3.0-0.5 MG/3 ML Neb Soln NEB SCH ×3 (06:23→12:57)
[2023-03-13] MEDS: Insulin Lispro 100 Units/ML 3 ML Vial SUBCUT SCH ×2 (08:22→12:30)
[2023-03-13] MEDS: Saccharomyces Boulardii (Probiotic) 250 MG Cap PO SCH (09:18)
[2023-03-13] MEDS: Clopidogrel 75 MG Tab PO SCH (09:19)
[2023-03-13] MEDS: atorvaSTATin 20 MG Tab PO SCH (09:19)
[2023-03-13] MEDS: Ferrous Sulfate 325 MG Tab PO SCH (09:20)
[2023-03-13] MEDS: Magnesium Oxide 400 MG Tab PO SCH (09:20)
[2023-03-13] MEDS: Furosemide 20 MG Tab PO SCH (09:21)
[2023-03-13] MEDS: hydrALAZINE 25 MG Tab PO SCH ×2 (09:21→12:29)
[2023-03-13] MEDS: Carvedilol 25 MG Tab PO SCH (09:22)
[2023-03-13] MEDS: Potassium Chloride 10 MEQ Tab.ER PO SCH (09:24)
[2023-03-13] MEDS: Cyanocobalamin (Vitamin B12) 100 MCG Tab PO SCH (09:26)
[2023-03-13] MEDS: Multivitamin Tab PO SCH (09:27)
[2023-03-13] MEDS: Apixaban 5 MG Tab PO SCH (09:27)
[2023-03-13] MEDS: DULoxetine 30 MG Cap PO SCH (09:27)
[2023-03-13] MEDS: Dorzolamide 2% Ophth Soln 10 ML Bottle EYEBOTH SCH (09:28)
[2023-03-13] MEDS: Polyvinyl Alcohol 1.4% Ophth Soln 15 ML Bottle EYEBOTH SCH ×2 (09:28→12:30)
[2023-03-13] MEDS: Sodium Chloride 0.9% 10 ML Syringe FLUSH PRN (09:29)
[2023-03-13] MEDS ORDERED: Calcium Carbonate 500 MG Tab.Chew PO ONE (10:55)
[2023-03-13 11:57] VITALS: BP 164/79
[2023-03-13 12:59] VITALS: PULSE 71
== END 2023-03-13 14:20 | disposition home or self-care (01) | DRG 871 ==
LOC: DL.ED 20:15 → DL.MS 22:12 → UNDOADMIN 22:12 → DL.MS 22:32
PROVIDERS: ADMIT Internal Medicine; ATTEND Internal Medicine
DX: A40.9 Streptococcal sepsis, unspecified (principal); G93.41 Metabolic encephalopathy; J18.9 Pneumonia, unspecified organism; A41.9 Sepsis, unspecified organism; N17.9 Acute kidney failure, unspecified; N30.00 Acute cystitis without hematuria; E87.20 Acidosis, unspecified; E87.1 Hypo-osmolality and hyponatremia; I13.0 Hypertensive heart and chronic kidney disease with heart failure and stage 1 through stage 4 chronic kidney disease, or unspecified chronic kidney disease; N18.4 Chronic kidney disease, stage 4 (severe); I50.32 Chronic diastolic (congestive) heart failure; E83.42 Hypomagnesemia; E87.6 Hypokalemia; R65.20 Severe sepsis without septic shock; E86.0 Dehydration; Z20.822 Contact with and (suspected) exposure to COVID-19; M19.90 Unspecified osteoarthritis, unspecified site; E11.22 Type 2 diabetes mellitus with diabetic chronic kidney disease; I49.5 Sick sinus syndrome; I25.10 Atherosclerotic heart disease of native coronary artery without angina pectoris; D50.9 Iron deficiency anemia, unspecified; D63.1 Anemia in chronic kidney disease; E53.8 Deficiency of other specified B group vitamins; I48.0 Paroxysmal atrial fibrillation; E78.2 Mixed hyperlipidemia; R09.02 Hypoxemia; E11.65 Type 2 diabetes mellitus with hyperglycemia; E11.42 Type 2 diabetes mellitus with diabetic polyneuropathy; E88.09 Other disorders of plasma-protein metabolism, not elsewhere classified; E66.9 Obesity, unspecified; Z68.27 Body mass index [BMI] 27.0-27.9, adult; Z87.01 Personal history of pneumonia (recurrent); K21.9 Gastro-esophageal reflux disease without esophagitis; Z79.02 Long term (current) use of antithrombotics/antiplatelets; Z79.01 Long term (current) use of anticoagulants; Z79.2 Long term (current) use of antibiotics; Z79.82 Long term (current) use of aspirin; Z79.84 Long term (current) use of oral hypoglycemic drugs; Z79.899 Other long term (current) drug therapy; Z95.0 Presence of cardiac pacemaker; Z95.1 Presence of aortocoronary bypass graft
CPT/HCPCS: 36415; 71046; 76770; 80053; 80202; 81001; 82550; 82947; 83605; 83735; 84145; 84484; 85025; 86140; 87040; 87070; 87077; 87086; 87186; 87205; 87804; 94010; 94060; 94640; 94667; 94668; 96361; 96365; 96375; 97110-GP; 97161-GP; 97165-GO; 97530-GO; 99233; 99238; 99285; 99285-25; A9270-GY; J0696; J1815-GY; J2543; J3370; J3490; J7030; J7040; J7050; J7120; J7620-GY; U0002

== ENCOUNTER 2023-04-05 10:05 | Emergency (ER) | payer MEDICARE, OTHER ==
[2023-04-05 10:37] VITALS: BP 122/77; PULSE 72
[2023-04-05 10:37] LABS: BASOPHILS PERCENT AUTO 0.4 % (0.0-1.0); EOSINOPHILS PERCENT AUTO 4.4 % (1.0-3.0); HEMATOCRIT 23.5 % (40.0-54.0); HEMOGLOBIN 7.4 g/dL (14.0-18.0); LYMPHOCYTES PERCENT AUTO 12.9 % (20.5-50.1); MEAN CORPUSCULAR HEMOGLOBIN 28.8 pg (27.0-34.0); MEAN CORPUSCULAR HGB CONC 31.5 g/dL (33.0-35.0); MEAN CORPUSCULAR VOLUME 91.4 fL (80-100); MONOCYTES PERCENT AUTO 12.1 % (2-8); NEUTROPHILS PERCENT AUTO 70.2 % (42.2-75.2); PLATELET COUNT,PLT 289 10^3/uL (150-450); RED BLOOD CELL COUNT 2.57 10^6/uL (4.6-6.2); WHITE BLOOD CELL COUNT,WBC 4.8 10^3/uL (5.0-10.0)
[2023-04-05 10:55] LABS: ALBUMIN 2.1 g/dL (3.4-5.0); ANION GAP 11.1 mEq/L (7-13); BILIRUBIN TOTAL 0.4 mg/dL (0.2-1.0); BUN/CREATININE RATIO 13.8 (No establ ref range); CALCIUM 9.4 mg/dL (8.5-10.1); CREATININE 2.47 mg/dL (0.70-1.30); EST CRCL DRUG DOSING (CG) 29.24 mL/min; POTASSIUM,K 5.1 mmol/L (3.5-5.1)
[2023-04-05 10:59] LABS: A/G RATIO 0.43
== END 2023-04-05 12:22 | disposition home or self-care (01) ==
LOC: DL.ED 10:05
DX: D64.9 Anemia, unspecified (principal); I25.10 Atherosclerotic heart disease of native coronary artery without angina pectoris; I13.0 Hypertensive heart and chronic kidney disease with heart failure and stage 1 through stage 4 chronic kidney disease, or unspecified chronic kidney disease; E11.22 Type 2 diabetes mellitus with diabetic chronic kidney disease; N18.9 Chronic kidney disease, unspecified; I50.9 Heart failure, unspecified; E11.40 Type 2 diabetes mellitus with diabetic neuropathy, unspecified; E78.00 Pure hypercholesterolemia, unspecified; Z79.84 Long term (current) use of oral hypoglycemic drugs; Z79.01 Long term (current) use of anticoagulants; Z79.899 Other long term (current) drug therapy
CPT/HCPCS: 36415; 80053; 82272; 85025; 99283; 99284

== ENCOUNTER 2023-07-03 09:47 | Inpatient (IN) | payer MEDICARE, OTHER ==
[2023-07-03] MEDS ORDERED: Acetaminophen/oxyCODONE 325-5 MG Tab PO PRN (13:05)
[2023-07-03] MEDS ORDERED: Ondansetron 4 MG Tab.DIS PO PRN (13:05)
[2023-07-03] MEDS ORDERED: Acetaminophen 325 MG Tab PO PRN (13:05)
[2023-07-03] MEDS ORDERED: Polyethylene Glycol 3350 Powder 17 GM Packet PO PRN (13:07)
[2023-07-03] MEDS ORDERED: Sennosides/Docusate Sodium 50-8.6 MG Tab PO PRN (13:07)
[2023-07-03] MEDS ORDERED: Magnesium Hydroxide 400 MG/5 ML Susp 30 ML Cup PO PRN (13:07)
[2023-07-03] MEDS ORDERED: Albuterol/Ipratropium 3.0-0.5 MG/3 ML Neb Soln NEB PRN (13:07)
[2023-07-03] MEDS ORDERED: traMADol 50 MG Tab PO PRN (13:10)
[2023-07-03] MEDS ORDERED: Nitroglycerin 0.4 MG Tab.SL SL PRN (13:10)
[2023-07-03] MEDS ORDERED: Carboxymethylcellulose Sodium 1% Ophth Gel 0.4 ML UD EYEBOTH PRN (13:10)
[2023-07-03] MEDS: Piperacillin/Tazobactam 3.375 GM in Sodium Chloride 0.9% 100 ML IV ONE (14:23)
[2023-07-03] MEDS: Furosemide 40 MG Tab PO SCH (15:08)
[2023-07-03] MEDS: hydrALAZINE 25 MG Tab PO SCH (16:59)
[2023-07-03] MEDS: Carvedilol 25 MG Tab PO SCH (17:00)
[2023-07-03] MEDS ORDERED: 50% Dextrose in Water 50 ML Syringe IVPUSH PRN (18:02)
[2023-07-03] MEDS ORDERED: Glucagon,Human Recombinant 1 MG Vial IM PRN (18:02)
[2023-07-03] MEDS: Piperacillin/Tazobactam 3.375 GM in Sodium Chloride 0.9% 100 ML IV SCH (20:15)
[2023-07-03] MEDS: Dorzolamide/Timolol 2%-0.5% Ophth Soln 10 ML Bottle EYEBOTH SCH (20:16)
[2023-07-03] MEDS: Gabapentin 300 MG Cap PO SCH (20:17)
[2023-07-03] MEDS: Isosorbide Mononitrate 60 MG Tab.ER PO SCH (20:17)
[2023-07-03] MEDS: atorvaSTATin 20 MG Tab PO SCH (20:17)
[2023-07-03] MEDS: Saccharomyces Boulardii (Probiotic) 250 MG Cap PO SCH (20:17)
[2023-07-04] MEDS: Ferrous Sulfate 325 MG Tab PO SCH (08:46)
[2023-07-04] MEDS: Magnesium Oxide 400 MG Tab PO SCH (08:46)
[2023-07-04] MEDS: Cyanocobalamin (Vitamin B12) 100 MCG Tab PO SCH (08:46)
[2023-07-04] MEDS: Ascorbic Acid 500 MG Tab PO SCH (08:46)
[2023-07-04] MEDS: Multivitamins with Iron/Calcium/Folic Acid/Minerals Tab PO SCH (08:47)
[2023-07-04] MEDS: Potassium Chloride 10 MEQ Tab.ER PO SCH (08:47)
[2023-07-04] MEDS: Clopidogrel 75 MG Tab PO SCH (08:48)
[2023-07-04] MEDS: DULoxetine 30 MG Cap PO SCH (08:49)
[2023-07-04] MEDS: Insulin Lispro 100 Units/ML 3 ML Vial SUBCUT SCH (08:50)
[2023-07-04] MEDS: PANTOPRAZOLE 20 MG PO SCH (11:02)
[2023-07-04] MEDS: SAXAGLIPTIN HCL 2.5 MG PO SCH (11:02)
[2023-07-04] MEDS: OMEGA ACID ETHYL ESTERS PO SCH (11:02)
[2023-07-04] MEDS: FENOFIBRIC ACID 45 MG PO SCH (11:03)
[2023-07-04] MEDS: [UNRECOGNIZED DRUG - OTHER] EYEBOTH SCH (13:27)
[2023-07-05] MEDS: Sodium Chloride 0.9% 10 ML Syringe FLUSH PRN (21:43)
[2023-07-09 06:38] LABS: BASOPHILS PERCENT AUTO 0.4 % (0.0-1.0); EOSINOPHILS PERCENT AUTO 3.6 % (1.0-3.0); HEMATOCRIT 24.8 % (40.0-54.0); HEMOGLOBIN 7.7 g/dL (14.0-18.0); LYMPHOCYTES PERCENT AUTO 15.1 % (20.5-50.1); MEAN CORPUSCULAR HEMOGLOBIN 28.3 pg (27.0-34.0); MEAN CORPUSCULAR VOLUME 91.2 fL (80-100); MONOCYTES PERCENT AUTO 10.1 % (2-8); NEUTROPHILS PERCENT AUTO 70.8 % (42.2-75.2); PLATELET COUNT,PLT 320 10^3/uL (150-450); RED BLOOD CELL COUNT 2.72 10^6/uL (4.6-6.2); WHITE BLOOD CELL COUNT,WBC 7.8 10^3/uL (5.0-10.0)
[2023-07-09 07:15] LABS: ALBUMIN 1.7 g/dL (3.4-5.0); ANION GAP 10.8 mEq/L (7-13); BILIRUBIN TOTAL 0.4 mg/dL (0.2-1.0); BUN/CREATININE RATIO 9.9 (No establ ref range); C-REACTIVE PROTEIN 1.55 ng/dL (<=0.50); CALCIUM 8.6 mg/dL (8.5-10.1); CREATININE 2.22 mg/dL (0.70-1.30); EST CRCL DRUG DOSING (CG) 32.53 mL/min; POTASSIUM,K 3.8 mmol/L (3.5-5.1); PROTEIN TOTAL,TP 5.9 g/dL (6.4-8.2)
[2023-07-09 07:21] LABS: A/G RATIO 0.4
[2023-07-09 07:28] LABS: SEDIMENTATION RATE MANUAL 54 mm/hr (0-15)
[2023-07-09] MEDS: Sodium Chloride 0.9% 1,000 ML IV SCH (18:33)
[2023-07-10 10:12] LABS: A/G RATIO 0.41; ALBUMIN 1.7 g/dL (3.4-5.0); ANION GAP 8.7 mEq/L (7-13); BILIRUBIN TOTAL 0.4 mg/dL (0.2-1.0); BUN/CREATININE RATIO 9.9 (No establ ref range); CALCIUM 8.3 mg/dL (8.5-10.1); CREATININE 2.32 mg/dL (0.70-1.30); EST CRCL DRUG DOSING (CG) 31.13 mL/min; POTASSIUM,K 3.7 mmol/L (3.5-5.1); PROTEIN TOTAL,TP 5.8 g/dL (6.4-8.2)
[2023-07-10 13:10] LABS: APPEARANCE,URINE CLEAR (CLEAR); BILIRUBIN,URINE NEGATIVE (NEGATIVE); COLOR,URINE YELLOW (YELLOW); GLUCOSE,URINE NEGATIVE (NEGATIVE); KETONES,URINE NEGATIVE (NEGATIVE); LEUKOCYTE ESTERASE,URINE NEGATIVE (NEGATIVE); NITRITE,URINE NEGATIVE (NEGATIVE); OCCULT BLOOD,URINE NEGATIVE (NEGATIVE); PROTEIN,URINE NEGATIVE (NEGATIVE); UROBILINOGEN,URINE 0.2 mg/dL (0.2-1.0)
[2023-07-10 13:16] LABS: BACTERIA,URINE RARE /HPF (0-FEW/HPF); RBC,URINE NOT SEEN /HPF (0-5); WBC,URINE NOT SEEN /HPF (0-5/HPF)
[2023-07-10 13:17] LABS: EPITHELIAL CELLS,URINE RARE /HPF (NOT SEEN)
[2023-07-14] MEDS ORDERED: Carboxymethylcellulose Sodium 1% Ophth Gel 0.4 ML UD EYEBOTH PRN (15:51)
[2023-07-16 08:53] LABS: EOSINOPHILS PERCENT AUTO 6.1 % (1.0-3.0); HEMATOCRIT 26.1 % (40.0-54.0); HEMOGLOBIN 8.2 g/dL (14.0-18.0); LYMPHOCYTES PERCENT AUTO 19.6 % (20.5-50.1); MEAN CORPUSCULAR HEMOGLOBIN 29.5 pg (27.0-34.0); MEAN CORPUSCULAR HGB CONC 31.4 g/dL (33.0-35.0); MEAN CORPUSCULAR VOLUME 93.9 fL (80-100); MONOCYTES PERCENT AUTO 10.5 % (2-8); NEUTROPHILS PERCENT AUTO 62.8 % (42.2-75.2); PLATELET COUNT,PLT 282 10^3/uL (150-450); RED BLOOD CELL COUNT 2.78 10^6/uL (4.6-6.2); WHITE BLOOD CELL COUNT,WBC 5.7 10^3/uL (5.0-10.0)
[2023-07-16 09:13] LABS: ALBUMIN 2.1 g/dL (3.4-5.0); ANION GAP 8.1 mEq/L (7-13); BILIRUBIN TOTAL 0.5 mg/dL (0.2-1.0); C-REACTIVE PROTEIN 1.72 ng/dL (<=0.50); CALCIUM 9.2 mg/dL (8.5-10.1); CREATININE 2.36 mg/dL (0.70-1.30); EST CRCL DRUG DOSING (CG) 30.6 mL/min; POTASSIUM,K 4.1 mmol/L (3.5-5.1); PROTEIN TOTAL,TP 6.6 g/dL (6.4-8.2)
[2023-07-16 09:15] LABS: A/G RATIO 0.47
[2023-07-16 09:35] LABS: SEDIMENTATION RATE MANUAL 71 mm/hr (0-15)
[2023-07-23 06:55] LABS: BASOPHILS PERCENT AUTO 0.7 % (0.0-1.0); EOSINOPHILS PERCENT AUTO 6.5 % (1.0-3.0); HEMATOCRIT 25.8 % (40.0-54.0); LYMPHOCYTES PERCENT AUTO 17.1 % (20.5-50.1); MEAN CORPUSCULAR HEMOGLOBIN 29.5 pg (27.0-34.0); MEAN CORPUSCULAR VOLUME 95.2 fL (80-100); NEUTROPHILS PERCENT AUTO 63.7 % (42.2-75.2); PLATELET COUNT,PLT 220 10^3/uL (150-450); RED BLOOD CELL COUNT 2.71 10^6/uL (4.6-6.2)
[2023-07-23 07:22] LABS: ALBUMIN 2.1 g/dL (3.4-5.0); ANION GAP 8.9 mEq/L (7-13); BILIRUBIN TOTAL 0.4 mg/dL (0.2-1.0); BUN/CREATININE RATIO 9.8 (No establ ref range); C-REACTIVE PROTEIN 1.71 ng/dL (<=0.50); CALCIUM 9.1 mg/dL (8.5-10.1); CREATININE 2.55 mg/dL (0.70-1.30); EST CRCL DRUG DOSING (CG) 28.32 mL/min; POTASSIUM,K 3.9 mmol/L (3.5-5.1); PROTEIN TOTAL,TP 6.7 g/dL (6.4-8.2)
[2023-07-23 07:24] LABS: A/G RATIO 0.46
[2023-07-23 07:49] LABS: SEDIMENTATION RATE MANUAL 55 mm/hr (0-15)
[2023-07-24 08:13] VITALS: PULSE 70
[2023-07-25 07:35] VITALS: BP 152/80
[2023-07-25] MEDS: FLU (Fluad Quad) 2023-24(65UP)/MF59C/PF 60 MCG/0.5 ML Syringe IM ONE (09:17)
== END 2023-07-25 11:10 | disposition home or self-care (01) | DRG 948 ==
LOC: DL.MS 12:31 → UNDOADMIN 12:31 → DL.MS 12:53
PROVIDERS: ADMIT Internal Medicine; ATTEND Internal Medicine
DX: R53.81 Other malaise (principal); I13.0 Hypertensive heart and chronic kidney disease with heart failure and stage 1 through stage 4 chronic kidney disease, or unspecified chronic kidney disease; E78.5 Hyperlipidemia, unspecified; I25.10 Atherosclerotic heart disease of native coronary artery without angina pectoris; I48.0 Paroxysmal atrial fibrillation; E11.22 Type 2 diabetes mellitus with diabetic chronic kidney disease; N18.30 Chronic kidney disease, stage 3 unspecified; E11.42 Type 2 diabetes mellitus with diabetic polyneuropathy; M19.90 Unspecified osteoarthritis, unspecified site; K21.9 Gastro-esophageal reflux disease without esophagitis; G89.29 Other chronic pain; M54.9 Dorsalgia, unspecified; E11.51 Type 2 diabetes mellitus with diabetic peripheral angiopathy without gangrene; E11.65 Type 2 diabetes mellitus with hyperglycemia; E78.00 Pure hypercholesterolemia, unspecified; H91.90 Unspecified hearing loss, unspecified ear; H40.9 Unspecified glaucoma; Z79.01 Long term (current) use of anticoagulants; Z95.0 Presence of cardiac pacemaker; Z79.899 Other long term (current) drug therapy; Z98.890 Other specified postprocedural states; Z79.02 Long term (current) use of antithrombotics/antiplatelets; Z98.49 Cataract extraction status, unspecified eye; Z95.1 Presence of aortocoronary bypass graft; Z89.431 Acquired absence of right foot
CPT/HCPCS: 36415; 80053; 81001; 82947; 85025; 85651; 85999; 86140; 90694; 97110-GO; 97110-GP; 97161-GP; 97165-GO; 97530-GO; 97535-GO; 99306; 99308; 99309; 99315; A9270-GY; G0008; J1815-GY; J2543; J3490; J7030

== ENCOUNTER 2023-08-02 23:52 | Inpatient (IN) | payer MEDICARE, OTHER ==
[2023-08-03 01:06] LABS: BASOPHILS PERCENT AUTO 0.2 % (0.0-1.0); EOSINOPHILS PERCENT AUTO 2.2 % (1.0-3.0); HEMATOCRIT 26.5 % (40.0-54.0); HEMOGLOBIN 8.1 g/dL (14.0-18.0); LYMPHOCYTES PERCENT AUTO 8.4 % (20.5-50.1); MEAN CORPUSCULAR HEMOGLOBIN 29.6 pg (27.0-34.0); MEAN CORPUSCULAR HGB CONC 30.6 g/dL (33.0-35.0); MEAN CORPUSCULAR VOLUME 96.7 fL (80-100); NEUTROPHILS PERCENT AUTO 82.2 % (42.2-75.2); PLATELET COUNT,PLT 237 10^3/uL (150-450); RED BLOOD CELL COUNT 2.74 10^6/uL (4.6-6.2); WHITE BLOOD CELL COUNT,WBC 9.2 10^3/uL (5.0-10.0)
[2023-08-03 01:19] LABS: APPEARANCE,URINE CLEAR (CLEAR); BILIRUBIN,URINE NEGATIVE (NEGATIVE); COLOR,URINE YELLOW (YELLOW); GLUCOSE,URINE NEGATIVE (NEGATIVE); KETONES,URINE NEGATIVE (NEGATIVE); LEUKOCYTE ESTERASE,URINE TRACE (NEGATIVE); NITRITE,URINE NEGATIVE (NEGATIVE); OCCULT BLOOD,URINE NEGATIVE (NEGATIVE); PH,URINE 5.5 (5.0-9.0); PROTEIN,URINE >=300 (NEGATIVE); UROBILINOGEN,URINE 0.2 mg/dL (0.2-1.0)
[2023-08-03] MEDS: Ertapenem 1 GM Vial IVPUSH ONE (01:22)
[2023-08-03 01:26] LABS: EPITHELIAL CELLS,URINE FEW /HPF (NOT SEEN); RBC,URINE 0-5 /HPF (0-5)
[2023-08-03 01:27] LABS: AMORPHOUS SEDIMENT,URINE FEW /HPF (NOT SEEN); BACTERIA,URINE FEW /HPF (0-FEW/HPF); MUCUS,URINE FEW /LPF (NOT SEEN)
[2023-08-03 01:30] LABS: ALBUMIN 2.2 g/dL (3.4-5.0); ANION GAP 7.5 mEq/L (7-13); BILIRUBIN TOTAL 0.5 mg/dL (0.2-1.0); BUN/CREATININE RATIO 13.4 (No establ ref range); C-REACTIVE PROTEIN 4.22 ng/dL (<=0.50); CREATININE 2.09 mg/dL (0.70-1.30); EST CRCL DRUG DOSING (CG) 35.57 mL/min; POTASSIUM,K 4.5 mmol/L (3.5-5.1); PROTEIN TOTAL,TP 6.6 g/dL (6.4-8.2); TSH ULTRASENSITIVE 1.71 uIU/mL (0.36-3.74)
[2023-08-03 01:41] LABS: A/G RATIO 0.5
[2023-08-03] MEDS ORDERED: Nitroglycerin 0.4 MG Tab.SL SL PRN (08:17)
[2023-08-03] MEDS ORDERED: Apixaban 5 MG Tab PO SCH (09:00)
[2023-08-03] MEDS ORDERED: Acetaminophen 325 MG Tab PO PRN (11:19)
[2023-08-03] MEDS ORDERED: Bisacodyl 5 MG Tab PO PRN (11:19)
[2023-08-03] MEDS ORDERED: Docusate Sodium 100 MG Cap PO PRN (11:19)
[2023-08-03] MEDS ORDERED: Ondansetron 4 MG/2 ML SDV IVPUSH PRN (11:19)
[2023-08-03] MEDS ORDERED: Acetaminophen/HYDROcodone 325-5 MG Tab PO PRN (11:19)
[2023-08-03] MEDS: Clopidogrel 75 MG Tab PO SCH (11:32)
[2023-08-03] MEDS: Cyanocobalamin (Vitamin B12) 100 MCG Tab PO SCH (11:32)
[2023-08-03] MEDS: Potassium Chloride 10 MEQ Tab.ER PO SCH (11:32)
[2023-08-03] MEDS: Ascorbic Acid 500 MG Tab PO SCH (11:32)
[2023-08-03] MEDS: Polyvinyl Alcohol 1.4% Ophth Soln 15 ML Bottle EYEBOTH SCH (11:32)
[2023-08-03] MEDS: Multivitamin Tab PO SCH (11:32)
[2023-08-03] MEDS: Magnesium Oxide 400 MG Tab PO SCH (11:33)
[2023-08-03] MEDS: DULoxetine 30 MG Cap PO SCH (11:33)
[2023-08-03] MEDS: hydrALAZINE 25 MG Tab PO SCH (11:36)
[2023-08-03] MEDS: Ferrous Sulfate 325 MG Tab PO SCH (11:36)
[2023-08-03] MEDS: Dorzolamide/Timolol 2%-0.5% Ophth Soln 10 ML Bottle EYEBOTH SCH (11:36)
[2023-08-03] MEDS: Pantoprazole 40 MG Tab.CR PO SCH (11:44)
[2023-08-03] MEDS: Heparin Sodium 5,000 Units/ML Vial SUBCUT SCH (11:44)
[2023-08-03] MEDS: Furosemide 40 MG Tab PO SCH ×2 (15:32→17:26)
[2023-08-03] MEDS: Carvedilol 25 MG Tab PO SCH (15:35)
[2023-08-03] MEDS: Apixaban 5 MG Tab PO SCH (17:25)
[2023-08-03] MEDS: metFORMIN 500 MG Tab PO SCH (17:25)
[2023-08-03] MEDS: FENOFIBRIC ACID 45 MG PO SCH (17:25)
[2023-08-03] MEDS: OMEGA ACID ETHYL ESTERS PO SCH (17:26)
[2023-08-03] MEDS: SAXAGLIPTIN HCL 5 MG PO SCH (17:26)
[2023-08-03] MEDS: Gabapentin 300 MG Cap PO SCH (21:00)
[2023-08-03] MEDS: Isosorbide Mononitrate 60 MG Tab.ER PO SCH (21:00)
[2023-08-03] MEDS: atorvaSTATin 20 MG Tab PO SCH (21:00)
[2023-08-04] MEDS: Ertapenem 1 GM Vial IVPUSH ONE (03:30)
[2023-08-04 06:36] LABS: BASOPHILS PERCENT AUTO 0.4 % (0.0-1.0); HEMATOCRIT 27.3 % (40.0-54.0); HEMOGLOBIN 8.2 g/dL (14.0-18.0); LYMPHOCYTES PERCENT AUTO 12.9 % (20.5-50.1); MEAN CORPUSCULAR HEMOGLOBIN 28.9 pg (27.0-34.0); MEAN CORPUSCULAR VOLUME 96.1 fL (80-100); MONOCYTES PERCENT AUTO 9.7 % (2-8); PLATELET COUNT,PLT 264 10^3/uL (150-450); RED BLOOD CELL COUNT 2.84 10^6/uL (4.6-6.2); WHITE BLOOD CELL COUNT,WBC 7.7 10^3/uL (5.0-10.0)
[2023-08-04 06:49] LABS: ANION GAP 9.8 mEq/L (7-13); CALCIUM 9.3 mg/dL (8.5-10.1); CREATININE 1.93 mg/dL (0.70-1.30); EST CRCL DRUG DOSING (CG) 37.42 mL/min; POTASSIUM,K 4.8 mmol/L (3.5-5.1)
[2023-08-05] MEDS: amLODIPine 5 MG Tab PO SCH (12:30)
[2023-08-06] MEDS: Ertapenem 1 GM Vial IVPUSH SCH (08:34)
[2023-08-08 11:43] VITALS: BP 132/73; PULSE 74
== END 2023-08-08 12:05 | disposition home or self-care (01) | DRG 638 ==
LOC: DL.ED 23:52 → DL.MS 08-03 06:11
PROVIDERS: ADMIT Internal Medicine; ATTEND Internal Medicine
DX: E11.69 Type 2 diabetes mellitus with other specified complication (principal); Z79.2 Long term (current) use of antibiotics; I13.0 Hypertensive heart and chronic kidney disease with heart failure and stage 1 through stage 4 chronic kidney disease, or unspecified chronic kidney disease; M86.9 Osteomyelitis, unspecified; I50.9 Heart failure, unspecified; N18.9 Chronic kidney disease, unspecified; I50.40 Unspecified combined systolic (congestive) and diastolic (congestive) heart failure; E78.2 Mixed hyperlipidemia; I25.10 Atherosclerotic heart disease of native coronary artery without angina pectoris; I48.0 Paroxysmal atrial fibrillation; E11.40 Type 2 diabetes mellitus with diabetic neuropathy, unspecified; E11.42 Type 2 diabetes mellitus with diabetic polyneuropathy; E11.22 Type 2 diabetes mellitus with diabetic chronic kidney disease; N18.30 Chronic kidney disease, stage 3 unspecified; M19.90 Unspecified osteoarthritis, unspecified site; H91.90 Unspecified hearing loss, unspecified ear; I48.91 Unspecified atrial fibrillation; K21.9 Gastro-esophageal reflux disease without esophagitis; G89.29 Other chronic pain; M54.9 Dorsalgia, unspecified; Z66 Do not resuscitate; R53.1 Weakness; R53.81 Other malaise; D63.1 Anemia in chronic kidney disease; Z95.1 Presence of aortocoronary bypass graft; Z95.0 Presence of cardiac pacemaker; Z98.890 Other specified postprocedural states; Z89.431 Acquired absence of right foot; Z79.899 Other long term (current) drug therapy; Z79.02 Long term (current) use of antithrombotics/antiplatelets; Z98.49 Cataract extraction status, unspecified eye; Z87.891 Personal history of nicotine dependence; Z97.8 Presence of other specified devices
CPT/HCPCS: 36415; 80048; 80053; 81001; 82947; 83605; 83735; 84443; 85025; 86140; 87086; 93005; 93010; 96374; 97110-GO; 97110-GP; 97116-GP; 97161-GP; 97165-GO; 97530-GO; 97530-GP; 99232; 99239; 99285; 99285-25; A9270-GY; J1335; J1644